=== PATIENT | male | born 1995 | race Caucasian/White ===

== ENCOUNTER 2018-04-22 20:43 | Emergency (ER) | payer OTHER ==
[2018-04-22 20:59] VITALS: BP 132/80
--- NOTE | 2018-04-22 21:30 | UC ---
Cardiac HPI - HPI Summary HPI Summary: pinching pain in chest for 1 week--no sob, fatigue nausea, chest wall tender to touch, - History of Current Complaint Chief Complaint: UCChestPain Stated Complaint: CHEST PAIN Time Seen by Provider: 04/22/18 21:02 Hx Obtained From: Patient Onset/Duration: Gradual Onset Timing: Constant Pain Intensity: 1 Chest Pain Location: Diffuse Aggravating Factor(s): Nothing Alleviating Factor(s): Nothing Associated Signs & Symptoms: Positive: Negative - Allergy/Home Medications Allergies/Adverse Reactions: Allergies Allergy/AdvReac Type Severity Reaction Status Date / Time amoxicillin Allergy Rash Verified 04/22/18 21:00 Home Medications: Home Medications Ibuprofen TAB* [Motrin TAB* 400 MG] 400 mg PO Q6H PRN 04/22/18 [History Confirmed 04/22/18] LevoCETirizine TAB (NF) [Xyzal TAB (NF)] 5 mg PO DAILY 04/22/18 [History Confirmed 04/22/18] PMH/Surg Hx/FS Hx/Imm Hx Previously Healthy: Yes - Surgical History Surgical History: None - Family History Known Family History: Positive: None - Social History Occupation: Student Lives: With Family Alcohol Use: Weekly Alcohol Amount: "it was a lot" Substance Use Type: Marijuana Smoking Status (MU): Light Every Day Tobacco Smoker Type: eCigarettes Review of Systems All Other Systems Reviewed And Are Negative: Yes Constitutional: Positive: Negative Skin: Positive: Negative Eyes: Positive: Negative ENT: Positive: Negative Respiratory: Positive: Negative Cardiovascular: Positive: Chest Pain Gastrointestinal: Positive: Negative Genitourinary: Positive: Negative Motor: Positive: Negative Neurovascular: Positive: Negative Musculoskeletal: Positive: Negative Neurological: Positive: Negative Psychological: Positive: Negative Is Patient Immunocompromised?: No Physical Exam Triage Information Reviewed: Yes Appearance: Well-Appearing, No Pain Distress, Well-Nourished Vital Signs: Initial Vital Signs Temp 98.7 F 04/22/18 20:51 Pulse 108 04/22/18 20:51 Resp 14 04/22/18 20:51 BP 132/80 04/22/18 20:51 Pulse Ox 98 04/22/18 20:51 Vital Signs Reviewed: Yes Eye Exam: Normal Eyes: Positive: Conjunctiva Clear ENT Exam: Normal ENT: Positive: Normal ENT inspection, Hearing grossly normal. Negative: Trismus , Muffled voice, Hoarse voice, Sinus tenderness Dental Exam: Normal Neck exam: Normal Neck: Positive: Supple, Nontender, No Lymphadenopathy Respiratory Exam: Normal Respiratory: Positive: Chest non-tender, Lungs clear, Normal breath sounds, No respiratory distress, No accessory muscle use Cardiovascular Exam: Normal Cardiovascular: Positive: RRR, No Murmur, Pulses Normal, Brisk Capillary Refill Abdominal Exam: Normal Abdomen Description: Positive: Nontender, No Organomegaly, Soft. Negative: CVA Tenderness (R), CVA Tenderness (L) Bowel Sounds: Positive: Present Musculoskeletal Exam: Normal Musculoskeletal: Positive: Strength Intact, ROM Intact, No Edema Neurological Exam: Normal Neurological: Positive: Alert, Muscle Tone Normal Psychological Exam: Normal Skin Exam: Normal Diagnostics - EKG Cardiac Rate: NL Cardiac Rhythm: Sinus: Normal Ectopy: None ST Segment: Normal EKG Comparison: Other - none available - Assessment/Plan Course Of Treatment: increase fluids, tylenol/ibuprofen for pain follow with pcp in 1-2 days to ed if symptoms worsen or fail to improve - Clinical Impression Provider Diagnosis: Non-cardiac chest pain Discharge - Sign-Out/Discharge Documenting (check all that apply): Patient Departure All imaging exams completed and their final reports reviewed: No Studies - Discharge Plan Condition: Stable Disposition: HOME Patient Education Materials: Ibuprofen (By mouth), Noncardiac Chest Pain (ED), Chest Wall Pain (ED) Referrals: [facility] [Outside] - 2 Days - Billing Disposition and Condition Condition: STABLE Disposition: Home
== END 2018-04-22 21:35 | disposition home or self-care (01) ==
LOC: UCEAST 20:43
DX: R07.89 Other chest pain (principal); Z88.0 Allergy status to penicillin; F17.290 Nicotine dependence, other tobacco product, uncomplicated
CPT/HCPCS: 99201; G0463

== ENCOUNTER 2018-12-18 14:11 | Emergency (ER) | payer OTHER ==
[2018-12-18 15:04] LABS: ABS Eosinophils 0.5 10^3/ul (0-0.6); ABS Lymphocytes 2.6 10^3/ul (1.0-4.8); ABS Monocytes 0.7 10^3/ul (0-0.8); ABS Neutrophils 2.2 10^3/ul (1.5-7.7); Eosinophil % 8.2 %; Hematocrit 45 % (42-52); Hemoglobin 15.1 g/dL (14.0-18.0); Lymphocyte % 43.6 %; Mean Corpuscular HGB Conc 34 g/dL (31-36); Mean Corpuscular Hemoglobin 29 pg (27-31); Mean Corpuscular Volume 86 fL (80-94); Mean Platelet Volume 8.4 fL (7.4-10.4); Nucleated Red Blood Cells % 0.1; Platelet Count 194 10^3/uL (150-450); Red Cell Distribution Width 14 % (10-15)
[2018-12-18 15:06] LABS: INR 1.05 (0.82-1.09)
[2018-12-18 15:18] LABS: Albumin 4.7 g/dL (3.2-5.2); Albumin/Globulin Ratio 1.7 (1-3); BUN/Creatinine Ratio 15.9 (8-20); Calcium 9.8 mg/dL (8.6-10.3); EGFR African American 143.5 (>60); EGFR Non-African American 118.6 (>60); Globulin 2.8 g/dL (2-4); Potassium 3.9 mmol/L (3.5-5.0); Total Bilirubin 0.5 mg/dL (0.2-1.0); Total Protein 7.5 g/dL (6.4-8.9)
--- NOTE | 2018-12-18 15:37 | ED ---
HPI Chest Pain - HPI Summary HPI Summary: 23-year-old male with a significant past medical history of anxiety presents to the emergency department today with a chief complaint of chest pain. He states this pain began this afternoon and lasted about an hour. He denies any other symptoms with this chest pain such as diaphoresis, shortness breath, abdominal pain, arm pain, jaw pain. He states his pain is not provoked by exertion and "comes and goes randomly". He says the pain lasts variable amounts of time and is unpredictable. He states he's had these episodes of chest pain for the last 3 months and has seen many providers for this reason and "they keep saying it is due to anxiety". Patient has no pain upon presenting to the emergency department and is otherwise stable and asymptomatic. He does endorse "on and off smoking ". He denies any personal or family history of MIs, the full arrhythmias, or sudden . Patient denies fever, abdominal pain, urination, shortness breath, lightheadedness, changes in vision. He denies any recent alcohol or recreational drug use. - History of Current Complaint Chief Complaint: EDChestPainROMI Time Seen by Provider: 12/18/18 15:10 Hx Obtained From: Patient Onset/Duration: Started Hours Ago Timing: Lasting Minutes Initial Severity: Mild Current Severity: Mild Pain Intensity: 4 Pain Scale Used: 0-10 Numeric Chest Pain Location: Mid Sternal Chest Pain Radiates: Yes Chest Pain Radiates To:: Arm - R arm Character: Pressure/Squeezing Aggravating Factor(s): Nothing Alleviating Factor(s): Nothing Associated Signs and Symptoms: Positive: Anxiety, Recent Stress. Negative: Vision Changes, Headaches, Numbness, Tingling, Dizziness, Shortness of Breath, Syncope, Fever, Lightheadedness, Diaphoresis, Nausea, Palpitations, Abdominal Pain Related History: Similar Episode/Dx as: - Patient has had many similar episodes in the past which prior workups have attributed to anxiety. - Allergy/Home Medications Allergies/Adverse Reactions: Allergies Allergy/AdvReac Type Severity Reaction Status Date / Time amoxicillin Allergy Rash Verified 04/22/18 21:00 PMH/Surg Hx/FS Hx/Imm Hx Infectious Disease History: No Infectious Disease History: Denies: Traveled Outside the [place] in Last 30 Days - Family History Known Family History: Positive: None - Social History Alcohol Use: Weekly Alcohol Amount: "it was a lot" Substance Use Type: Reports: Marijuana Smoking Status (MU): Light Every Day Tobacco Smoker Type: eCigarettes Review of Systems Constitutional: Negative Positive: Chest Pain Respiratory: Negative Gastrointestinal: Negative Musculoskeletal: Negative Negative: Rash Psychological: Normal Positive: Anxious All Other Systems Reviewed And Are Negative: Yes Physical Exam Triage Information Reviewed: Yes Vital Signs On Initial Exam: Initial Vitals Temp Pulse Resp BP Pulse Ox 98.5 F 83 16 123/77 100 12/18/18 14:13 12/18/18 14:13 12/18/18 14:13 12/18/18 14:13 12/18/18 14:13 Vital Signs Reviewed: Yes Appearance: Positive: Well-Appearing, No Pain Distress, Well-Nourished Skin: Positive: Warm, Skin Color Reflects Adequate Perfusion Head/Face: Positive: Normal Head/Face Inspection Eyes: Positive: Normal, EOMI ENT: Positive: Hearing grossly normal Respiratory/Lung Sounds: Positive: Clear to Auscultation, Breath Sounds Present Cardiovascular: Positive: Normal, RRR, Other - Nontender with palpation, S1, S2. Negative: Murmur Abdomen Description: Positive: Nontender, Soft Bowel Sounds: Positive: Present Musculoskeletal: Positive: Strength/ROM Intact Neurological: Positive: Normal, Sensory/Motor Intact, Alert, Oriented to Person Place, Time Psychiatric: Positive: Normal AVPU Assessment: Alert Procedures - Sedation Patient Received Moderate/Deep Sedation with Procedure: No Diagnostics - Vital Signs Vital Signs Temp Pulse Resp BP Pulse Ox 12/18/18 14:13 98.5 F 83 16 123/77 100 - Laboratory Lab Results: Lab Results 12/18/18 12/18/18 12/18/18 Range/Units 14:51 14:51 14:51 WBC 6.0 (3.5-10.8) 10^3/uL RBC 5.20 (4.18-5.48) 10^6 /uL Hgb 15.1 (14.0-18.0) g/dL Hct 45 (42-52) % MCV 86 (80-94) fL MCH 29 (27-31) pg MCHC 34 (31-36) g/dL RDW 14 (10-15) % Plt Count 194 (150-450) 10^3/uL MPV 8.4 (7.4-10.4) fL Neut % (Auto) 36.8 % Lymph % (Auto) 43.6 % Cook % (Auto) 11.0 % Eos % (Auto) 8.2 % Baso % (Auto) 0.4 % Absolute Neuts (auto) 2.2 (1.5-7.7) 10^3/ul Absolute Lymphs (auto) 2.6 (1.0-4.8) 10^3/ul Absolute Monos (auto) 0.7 (0-0.8) 10^3/ul Absolute Eos (auto) 0.5 (0-0.6) 10^3/ul Absolute Basos (auto) 0.0 (0-0.2) 10^3/ul Absolute Nucleated RBC 0.0 10^3/ul Nucleated RBC % 0.1 INR (Anticoag Therapy) 1.05 (0.82-1.09) Sodium 137 (135-145) mmol/L Potassium 3.9 (3.5-5.0) mmol/L Chloride 103 (101-111) mmol/L Carbon Dioxide 31 (22-32) mmol/L Anion Gap 3 (2-11) mmol/L BUN 13 (6-24) mg/dL Creatinine 0.82 (0.67-1.17) mg/dL Est GFR ( Amer) 143.5 (>60) Est GFR (Non-Af Amer) 118.6 (>60) BUN/Creatinine Ratio 15.9 (8-20) Glucose 84 (70-100) mg/dL Calcium 9.8 (8.6-10.3) mg/dL Total Bilirubin 0.50 (0.2-1.0) mg/dL AST 18 (13-39) U/L ALT 13 (7-52) U/L Alkaline Phosphatase 66 (34-104) U/L Troponin I 0.00 (<0.04) ng/mL Total Protein 7.5 (6.4-8.9) g/dL Albumin 4.7 (3.2-5.2) g/dL Globulin 2.8 (2-4) g/dL Albumin/Globulin Ratio 1.7 (1-3) Result Diagrams: 12/18/18 14:51 12/18/18 14:51 Lab Statement: Any lab studies that have been ordered have been reviewed, and results considered in the medical decision making process. Chest Pain Course/Dx - Course Course Of Treatment: Patient was evaluated in the emergency department for chest pain. The patient was seen and examined. An EKG was performed which showed normal sinus rhythm at a rate of 79 bpm. There is no prolongation of OR or QTc interval. There is normal axis. There is mild nonpathological ST elevation which is due to early repolarization which is normal considering his age. His laboratory studies revealed no acute abnormalities are all within normal limits. Troponin I was 0. Patient's heart score is 2 considering the benign early repolarization on his EKG as well as being a smoker. Evaluation in the emergency Department determined his chest pain is not due to acute coronary pathology but is likely caused by his anxiety. He is to follow-up with his primary care provider or cardiology for further evaluation of his symptoms. The patient was informed to return to the emergency department if he has any worsening or new symptoms development. - Chest Pain Differential Diagnosis/HQI/PQRI: Acute NM, ACS, Angina, Other: - anxiety - Diagnoses Provider Diagnoses: Chest pain Discharge ED - Sign-Out/Discharge Documenting (check all that apply): Patient Departure - Discharge Plan Condition: Stable Disposition: HOME Patient Education Materials: Chest Pain (ED), Anxiety (ED) [facility] Days Gigi Zhang MD [Medical Doctor] - 2 Days Additional Instructions: You were evaluated today in the emergency department for chest pain. Laboratory studies as well as an EKG showed no signs of acute cardiopulmonary disease. It is likely that your chest pain is due to anxiety but further workup should be done by your primary care provider or operational risk manager. You should follow-up with your primary care provider in 2-3 days for further evaluation of your problem. If your symptoms worsen or develop any new symptoms please return to the emergency Department immediately. you may return to activity as tolerated. - Billing Disposition and Condition Condition: STABLE Disposition: Home - Attestation Statements Provider Attestation: I was available for consult. This patient was seen by the [facility]. The patient was not presented to, seen by, or examined by me. -Valdo
[2018-12-18 15:47] VITALS: BP 116/60
== END 2018-12-18 15:40 | disposition home or self-care (01) ==
LOC: ED 14:11
DX: F41.9 Anxiety disorder, unspecified (principal); R94.31 Abnormal electrocardiogram [ECG] [EKG]; F17.210 Nicotine dependence, cigarettes, uncomplicated; R07.9 Chest pain, unspecified; Z88.0 Allergy status to penicillin
CPT/HCPCS: 36415; 80053; 84484; 85025; 85610; 93005; 99282

== ENCOUNTER 2019-03-21 18:26 | Emergency (ER) | payer OTHER ==
--- NOTE | 2019-03-21 19:43 | ED ---
GI/ HPI - HPI Summary HPI Summary: 23 year old M arriving via private car from [facility] complains of worsening left groin pain starting Monday03/18/2019 0400 and left groin swelling and erythema starting on Monday03/20/2019. Patient states he woke up to use the bathroom on Saturday 03/18 AM to urinate and felt pain in left groin. He states he tried going back to sleep and had difficulty falling asleep. Patient reports fever starting Sunday 03/19 AM, and diaphoresis starting 03/19 PM and 03/20. No fever 03/20. No diaphoresis today . Patient reports constipation on 03/19 PM but now resolved. Was seen at [facility] on 03/18. Patient denies erythema of eyes, sore throat, rhinorrhea, chest pain, shortness of breath, cough, abdominal pain, nausea/ vomiting/diarrhea, dysuria, hematuria, myalgia, testicular pain, edema, rash, dizziness. Symptoms rated 0/10 in severity. Symptoms aggravated by touch and palpation. Symptoms alleviated by lying down and sitting down. Medications reviewed. Allergies reviewed. No hx hernia. No hx kidney stones. Patient states he last saved 1-2 weeks ago. No sexual activity since January 2019. No hx tick exposure. - History of Current Complaint Chief Complaint: EDUrogenitalProblems Time Seen by Provider: 03/21/19 19:29 Stated Complaint: SENT BY [facility] PER PT Hx Obtained From: Patient Onset/Duration: Started Days Ago, Still Present Timing: Constant Current Severity: None Pain Intensity: 0 Associated Signs and Symptoms: Positive: Negative - erythema of eyes, sore throat, rhinorrhea, chest pain, shortness of breath, cough, abdominal pain, nausea/vomiting/diarrhea, dysuria, hematuria, myalgia, testicular pain, edema, rash, dizziness Aggravating Factor(s): Palpation Alleviating Factor(s): Position - Allergy/Home Medications Allergies/Adverse Reactions: Allergies Allergy/AdvReac Type Severity Reaction Status Date / Time amoxicillin Allergy Rash Verified 03/18/19 10:43 PMH/Surg Hx/FS Hx/Imm Hx Respiratory History: Reports: Hx Seasonal Allergies GI History: Denies: Hx Hiatal Hernia History: Denies: Hx Kidney Stones Psychiatric History: Reports: Hx Anxiety - Surgical History Surgical History: None Infectious Disease History: No Infectious Disease History: Denies: Traveled Outside the [place] in Last 30 Days - Family History Known Family History: Negative: Renal Disease - Social History Alcohol Use: Weekly Alcohol Amount: "it was a lot" Hx Substance Use: Yes Substance Use Type: Reports: Marijuana Hx Tobacco Use: Yes Smoking Status (MU): Current Some Day Smoker Type: eCigarettes Review of Systems Positive: Fever, Skin Diaphoresis. Negative: Chills Negative: Erythema ENT: Negative - rhinorrhea Negative: Sore Throat Negative: Chest Pain Negative: Shortness Of Breath, Cough Positive: Other - constipation. Negative: Abdominal Pain, Vomiting, Diarrhea, Nausea Genitourinary: Negative - testicular, Other - left groin swelling Positive: pain - left groin. Negative: dysuria, hematuria Negative: Myalgia, Edema Negative: Rash Neurological/Mental Status: Negative - Dizziness All Other Systems Reviewed And Are Negative: Yes Physical Exam - Summary Physical Exam Summary: Constitutional: Well-developed, Well-nourished, Alert. (-) Distressed Skin: Warm, Dry HENT: Normocephalic; Atraumatic Eyes: Conjunctiva normal Neck: Musculoskeletal ROM normal neck. (-) JVD, (-) Stridor, (-) Tracheal deviation Cardio: Rhythm regular, rate normal, Heart sounds normal; Intact distal pulses; The pedal pulses are 2+ and symmetric. Radial pulses are 2+ and symmetric. (-) Murmur Pulmonary/Chest wall: Effort normal. (-) Respiratory distress, (-) Wheezes, (-) Rales Abd: Soft, (-) tenderness, (-) Distension, (-) Guarding, (-) Rebound exam in standing position: There are no inguinal hernias. No testicular or epididymal tenderness. There is palpable lymphadenopathy in left inguinal space Musculoskeletal: (-) Edema Lymph: (-) Cervical adenopathy Neuro: Alert, Oriented x3 Psych: Mood and affect Normal Triage Information Reviewed: Yes Vital Signs On Initial Exam: Initial Vitals Temp Pulse Resp BP Pulse Ox 98.3 F 86 16 108/84 100 03/21/19 18:29 03/21/19 18:29 03/21/19 18:29 03/21/19 18:29 03/21/19 18:29 Vital Signs Reviewed: Yes Procedures - Sedation Patient Received Moderate/Deep Sedation with Procedure: No Diagnostics - Vital Signs Vital Signs Temp Pulse Resp BP Pulse Ox 03/21/19 18:29 98.3 F 86 16 108/84 100 - Laboratory Result Diagrams: 03/21/19 21:05 Lab Statement: Any lab studies that have been ordered have been reviewed, and results considered in the medical decision making process. - Ultrasound Appendix Ultrasound Interpretation Completed By: Radiologist Summary of Ultrasound Findings: Mild left inguinal adenopathy. ED physician has reviewed this report. GIGU Course/Dx - Course Course Of Treatment: 23 y/o M c/o worsening left groin pain starting 03/18 0400 and left groin swelling and erythema starting on Monday. He notes fever Sunday 03/19, diaphoresis starting 03/19 PM and ending 03/20, and constipation on 03/19 PM, all of which have since resolved. No hx hernia. exam in standing position: There are no inguinal hernias. No testicular or epididymal tenderness. There is palpable lymphadenopathy in left inguinal space. Bloodwork results with no significant abnormalities. Urinalysis results with no significant abnormalities. Appendix ultrasound shows mild left inguinal adenopathy. White blood cell count is normal, no immediate evidence of ACUTE leukemia or lymphoma. Patient will be discharged home with follow up from his primary care provider in 2 days. Patient was instructed to return to Emergency Department for new or worsening symptoms. Patient understands and is agreeable to this plan. - Diagnoses Provider Diagnoses: Lymphadenopathy, inguinal Discharge ED - Sign-Out/Discharge Documenting (check all that apply): Patient Departure - Discharge Plan Condition: Good Disposition: HOME Patient Education Materials: Lymphadenopathy (ED) Referrals: Giulia Pedro MD [Medical Doctor] - 2 Days Additional Instructions: There are no restrictions on your activity. We identified an enlarged lymph node in the left groin. The cause of that at this point is unclear. Close follow-up is very important, I expect it will likely resolve on its own. Work up this far has been negative. If the node there is persistent, and may require additional testing such as biopsy. Use ibuprofen and ice packs as needed. Avoid hot packs. - Attestation Statements Document Initiated by Scribe: Yes Documenting Scribe: Maranda Chahal Provider For Whom Millicente is Documenting (Include Credential): Kenneth Ruiz MD Scribe Attestation: Maranda Coelho, scribed for Kenneth Ruiz MD on 03/21/19 at 2138. Status of Scribe Document: Ready
[2019-03-21 20:06] LABS: Urine Appearance Turbid; Urine Bilirubin Negative (Negative); Urine Blood Negative (Negative); Urine Color Yellow; Urine Glucose Negative (Negative); Urine Ketones Negative (Negative); Urine Nitrite Negative (Negative); Urine Protein Negative (Negative); Urine Urobilinogen Negative (Negative)
[2019-03-21 21:14] LABS: Hematocrit 42 % (42-52); Hemoglobin 14.1 g/dL (14.0-18.0); Mean Corpuscular HGB Conc 33 g/dL (31-36); Mean Corpuscular Hemoglobin 29 pg (27-31); Mean Corpuscular Volume 87 fL (80-94); Mean Platelet Volume 8.3 fL (7.4-10.4); Platelet Count 221 10^3/uL (150-450); Red Blood Count 4.87 10^6 /uL (4.18-5.48); Red Cell Distribution Width 14 % (10-15); White Blood Count 8.2 10^3/uL (3.5-10.8)
[2019-03-21 21:40] LABS: Albumin 4.2 g/dL (3.2-5.2); Albumin/Globulin Ratio 1.5 (1-3); BUN/Creatinine Ratio 17.9 (8-20); C Reactive Protein 24.92 mg/L (<8.01); Calcium 9.1 mg/dL (8.6-10.3); EGFR Non-African American 125.6 (>60); Globulin 2.8 g/dL (2-4); Potassium 3.8 mmol/L (3.5-5.0); Total Bilirubin 0.4 mg/dL (0.2-1.0)
[2019-03-21 21:54] VITALS: BP 119/63
[2019-03-22 13:27] LABS: Chlamydia trachomatis NAA Negative (Negative); Neisseria gonorrhoeae (GC) NAA Negative (Negative)
== END 2019-03-21 21:54 | disposition home or self-care (01) ==
LOC: ED 18:26
DX: R59.1 Generalized enlarged lymph nodes (principal); Z88.0 Allergy status to penicillin; Z72.0 Tobacco use
CPT/HCPCS: 36415; 76705; 80053; 81003; 85027; 86140; 87491; 87591; 99282